=== PATIENT | female | born 1950 | race Two or more races ===

== ENCOUNTER 2018-06-19 08:04 | Outpatient (CLI) | payer OTHER ==
[~2018-06-19 08:04] MED LIST: FOSAMAX70 MG; SYNTHROID50 MCG
== END 2018-06-19 08:07 | disposition home or self-care (01) ==
LOC: SONOGRAMA 08:04
DX: E04.2 Nontoxic multinodular goiter (principal)

== ENCOUNTER 2018-06-25 10:52 | Outpatient (CLI) | payer OTHER | END 2018-06-25 10:59 | disposition home or self-care (01) | LOC: NUCLEAR 10:52 | DX: M85.9 Disorder of bone density and structure, unspecified (principal); M81.0 Age-related osteoporosis without current pathological fracture ==

== ENCOUNTER 2018-08-14 08:05 | Outpatient (CLI) | payer OTHER | END 2018-08-14 08:19 | disposition home or self-care (01) | LOC: RAD 501 08:05 | DX: M25.551 Pain in right hip (principal) ==

== ENCOUNTER 2019-07-25 08:09 | Outpatient (CLI) | payer OTHER | END 2019-07-25 09:30 | disposition home or self-care (01) | LOC: SONOGRAMA 08:09 | DX: E04.2 Nontoxic multinodular goiter (principal) ==

== ENCOUNTER → 2020-06-07 | Outpatient (CLI) | payer OTHER | END | disposition home or self-care (01) | LOC: SONOGRAMA 08:08 | PROVIDERS: ATTEND Pathology Anatomic Pathology & Clinical Pathology | DX: D34 Benign neoplasm of thyroid gland (principal); D44.7 Neoplasm of uncertain behavior of aortic body and other paraganglia; E04.8 Other specified nontoxic goiter ==

== ENCOUNTER 2020-08-09 08:09 | Outpatient (CLI) | payer OTHER | END 2020-08-09 08:15 | disposition home or self-care (01) | LOC: LAB 08:09 | PROVIDERS: ATTEND Orthopaedic Surgery | DX: E21.2 Other hyperparathyroidism (principal); E88.89 Other specified metabolic disorders; M81.8 Other osteoporosis without current pathological fracture; E56.1 Deficiency of vitamin K ==

== ENCOUNTER 2021-02-25 07:25 | Outpatient (CLI) | payer OTHER | END 2021-02-25 07:33 | disposition home or self-care (01) | LOC: SONOGRAMA 07:25 → MAMO-SONO 07:45 | PROVIDERS: ATTEND Internal Medicine Endocrinology, Diabetes & Metabolism | DX: E06.0 Acute thyroiditis (principal); E04.2 Nontoxic multinodular goiter ==

== ENCOUNTER 2021-09-02 08:26 | Outpatient (CLI) | payer OTHER | END 2021-09-02 08:27 | disposition home or self-care (01) | LOC: LAB 08:26 | PROVIDERS: ATTEND Orthopaedic Surgery | DX: E55.9 Vitamin D deficiency, unspecified (principal); M85.9 Disorder of bone density and structure, unspecified; E21.3 Hyperparathyroidism, unspecified; E88.9 Metabolic disorder, unspecified; M81.8 Other osteoporosis without current pathological fracture; E56.1 Deficiency of vitamin K ==

== ENCOUNTER 2022-02-28 09:07 | Outpatient (CLI) | payer OTHER | END 2022-02-28 09:09 | disposition home or self-care (01) | LOC: RAD 09:07 | PROVIDERS: ATTEND Orthopaedic Surgery | DX: M25.562 Pain in left knee (principal) ==

== ENCOUNTER 2022-03-07 08:56 | Outpatient (CLI) | payer OTHER | END 2022-03-07 08:58 | disposition home or self-care (01) | LOC: SONOGRAMA 08:56 | DX: E04.2 Nontoxic multinodular goiter (principal) ==

== ENCOUNTER 2022-06-12 08:22 | Outpatient (CLI) | payer OTHER | END 2022-06-12 15:52 | disposition home or self-care (01) | LOC: LAB 08:22 | PROVIDERS: ATTEND Orthopaedic Surgery | DX: I10 Essential (primary) hypertension (principal); Z76.89 Persons encountering health services in other specified circumstances; D64.9 Anemia, unspecified; D68.8 Other specified coagulation defects; N39.0 Urinary tract infection, site not specified; E11.9 Type 2 diabetes mellitus without complications ==

== ENCOUNTER 2022-06-22 13:50 | Inpatient (IN) | payer OTHER ==
[~2022-06-22] VITALS: Ht 160 cm; Wt 82.6 kg
[2022-06-22] MEDS ORDERED: ENALAPRIL MALEAT5 MG PO (15:50)
== END 2022-06-29 15:00 | disposition home or self-care (01) | DRG 470 ==
LOC: O/R 06-27 05:50 → SURH 06-27 07:00 → OB/GYN 06-27 16:53
PROVIDERS: ADMIT Orthopaedic Surgery; ATTEND Orthopaedic Surgery
PROC: 0SRD0J9 Replacement of Left Knee Joint with Synthetic Substitute, Cemented, Open Approach (ICD-10-PCS; principal; 2022-06-27 07:00)
DX: M17.12 Unilateral primary osteoarthritis, left knee (principal); I10 Essential (primary) hypertension; E03.9 Hypothyroidism, unspecified; Z20.822 Contact with and (suspected) exposure to COVID-19

== ENCOUNTER → 2022-09-27 | Outpatient (CLI) | payer OTHER ==
[~2022-09-27] MED LIST changes: +ENALAPRIL MALEAT5 MG PO
== END | disposition home or self-care (01) ==
LOC: NUCLEAR 08:18
PROVIDERS: ATTEND Internal Medicine
DX: I82.409 Acute embolism and thrombosis of unspecified deep veins of unspecified lower extremity (principal)

== ENCOUNTER 2022-11-16 07:04 | Outpatient (CLI) | payer OTHER | END 2022-11-16 07:05 | disposition home or self-care (01) | LOC: NUCLEAR 07:04 | PROVIDERS: ATTEND Internal Medicine Rheumatology | DX: M25.50 Pain in unspecified joint (principal) | CPT/HCPCS: 78315; A9503 ==

== ENCOUNTER → 2022-11-30 11:54 | Outpatient (CLI) | payer OTHER | END | disposition home or self-care (01) | LOC: LAB 11:54 | PROVIDERS: ATTEND Orthopaedic Surgery | DX: M25.48 Effusion, other site (principal) ==

== ENCOUNTER 2022-12-12 08:58 | Day surgery (SDC) | payer OTHER ==
[~2022-12-12] VITALS: Ht 160 cm; Wt 77.1 kg
[~2022-12-12 08:58] MED LIST changes: +LEVOTHYROXINE25 MCG PO
== END 2022-12-12 17:00 | disposition home or self-care (01) ==
LOC: SURG 08:58 → CIR.AMB 08:58 → O/R 08:58 → SURG 10:52 → O/R 17:00 → CIR.AMB 17:00
PROVIDERS: ATTEND Orthopaedic Surgery
DX: M24.562 Contracture, left knee (principal); M65.862 Other synovitis and tenosynovitis, left lower leg; Z88.6 Allergy status to analgesic agent; I10 Essential (primary) hypertension; E03.9 Hypothyroidism, unspecified; R73.03 Prediabetes

== ENCOUNTER 2023-07-03 07:42 | Outpatient (CLI) | payer OTHER | END 2023-07-03 07:48 | disposition home or self-care (01) | LOC: RAD 07:42 | PROVIDERS: ATTEND Orthopaedic Surgery | DX: M17.11 Unilateral primary osteoarthritis, right knee (principal) ==

== ENCOUNTER 2023-08-08 07:13 | Outpatient (CLI) | payer OTHER ==
[2023-08-08 08:32] LABS: MAGNESIUM 2.4 mg/dL (1.8-2.4)
[2023-08-08 08:33] LABS: C-REACTIVE PROTEIN 1.77 MG/DL (0.00-0.29)
== END 2023-08-08 07:14 | disposition home or self-care (01) ==
LOC: LAB 07:13
PROVIDERS: ATTEND Orthopaedic Surgery
DX: E55.9 Vitamin D deficiency, unspecified (principal); M85.9 Disorder of bone density and structure, unspecified; E56.1 Deficiency of vitamin K; M06.4 Inflammatory polyarthropathy

== ENCOUNTER 2023-08-30 07:34 | Outpatient (CLI) | payer OTHER | END 2023-08-30 07:36 | disposition home or self-care (01) | LOC: SONOGRAMA 07:34 | PROVIDERS: ATTEND Internal Medicine Endocrinology, Diabetes & Metabolism | DX: E04.2 Nontoxic multinodular goiter (principal) ==

== ENCOUNTER 2023-08-31 08:02 | Outpatient (CLI) | payer OTHER | END 2023-08-31 08:08 | disposition home or self-care (01) | LOC: RAD 08:02 | PROVIDERS: ATTEND Orthopaedic Surgery | DX: M25.562 Pain in left knee (principal); Z96.652 Presence of left artificial knee joint ==

== ENCOUNTER 2023-10-17 07:13 | Outpatient (CLI) | payer OTHER ==
[2023-10-18] MEDS ORDERED: XARELTO10 M1 PO (17:50)
[2023-10-18] MEDS ORDERED: GABAPENTIN100 M2 PO (17:50)
== END 2023-10-17 07:14 | disposition home or self-care (01) ==
LOC: NUCLEAR 07:13
PROVIDERS: ATTEND Orthopaedic Surgery
DX: M25.562 Pain in left knee (principal); Z96.652 Presence of left artificial knee joint
CPT/HCPCS: 78315; A9503

== ENCOUNTER 2023-10-18 17:25 | Emergency (ER) | payer OTHER ==
[~2023-10-18] VITALS: Ht 160 cm; Wt 83.0 kg
[2023-10-18] MEDS ORDERED: XARELTO10 M1 PO (17:50)
[2023-10-18] MEDS ORDERED: GABAPENTIN100 M2 PO (17:50)
[2023-10-18] MEDS ORDERED: METHYLPREDNISOLONE SOD SUCC 125 MG VIAL IM STA (19:11)
== END 2023-10-18 19:23 | disposition home or self-care (01) ==
LOC: ER 17:26
DX: M25.512 Pain in left shoulder (principal); Z88.6 Allergy status to analgesic agent
CPT/HCPCS: 96372; 99282; J3490

== ENCOUNTER 2024-05-21 10:31 | Outpatient (CLI) | payer OTHER ==
[~2024-05-21 10:31] MED LIST changes: +GABAPENTIN100 M2 PO; +XARELTO10 M1 PO
== END 2024-05-21 10:35 | disposition home or self-care (01) ==
LOC: SONOGRAMA 10:31
PROVIDERS: ATTEND Internal Medicine
DX: N18.2 Chronic kidney disease, stage 2 (mild) (principal)

== ENCOUNTER 2024-06-02 07:45 | Outpatient (CLI) | payer OTHER | END 2024-06-02 07:53 | disposition home or self-care (01) | LOC: RAD 07:45 | PROVIDERS: ATTEND Orthopaedic Surgery | DX: M54.50 Low back pain, unspecified (principal) ==

== ENCOUNTER 2024-12-10 08:00 | Outpatient (CLI) | payer OTHER | END 2024-12-10 08:06 | disposition home or self-care (01) | LOC: TOM 08:00 | DX: I72.9 Aneurysm of unspecified site (principal) ==

== ENCOUNTER 2025-04-20 09:17 | Outpatient (CLI) | payer OTHER | END 2025-04-20 09:27 | disposition home or self-care (01) | LOC: RAD 09:17 | PROVIDERS: ATTEND Orthopaedic Surgery | DX: M25.561 Pain in right knee (principal) ==

== ENCOUNTER 2025-04-28 07:16 | Outpatient (CLI) | payer OTHER | END 2025-04-28 07:18 | disposition home or self-care (01) | LOC: TOM 07:16 | PROVIDERS: ATTEND Urology | DX: R31.0 Gross hematuria (principal) | CPT/HCPCS: 74178; Q9965 ==

== ENCOUNTER 2025-06-05 08:08 | Outpatient (CLI) | payer OTHER ==
[2025-06-05 10:01] LABS: ALT/SGPT 25.0 U/L (12-78); AST/SGOT 21.0 U/L (15-37); BILIRUBIN TOTAL 0.7 mg/dL (0.3-1.2); BUN CREA RATIO 23.0 (7.0-25.0); CREATININE SERUM 0.65 mg/dL (0.55-1.02); GFR 89.35; GLOBULINA 3.6 G/DL (2.4-3.5); GLUCOSE FASTING 92.0 mg/dL (65-100); OSMOLALITY SERUM 282.0 MOSM/KG (275-295)
[2025-06-08 14:11] LABS: CALCIUM IONIZED 5.7 mg/dL (4.5-5.6)
== END 2025-06-05 08:26 | disposition home or self-care (01) ==
LOC: LAB 08:08
PROVIDERS: ATTEND Orthopaedic Surgery
DX: E55.9 Vitamin D deficiency, unspecified (principal); E56.1 Deficiency of vitamin K; E21.3 Hyperparathyroidism, unspecified; E88.89 Other specified metabolic disorders; M81.8 Other osteoporosis without current pathological fracture